=== PATIENT | male | born 1975 | race Caucasian/White ===

== ENCOUNTER 2024-03-06 05:58 | Day surgery (SDC) | payer BC ==
[2024-03-03 16:29] VITALS: BP 145/84
[~2024-03-06] VITALS: Ht 177.8 cm; Wt 56.8 kg
[~2024-03-06 05:58] MED LIST: MIDAZOLAM HCL 5 MG/5 ML VIAL IV PRN; fentaNYL citrate 100 MCG/2 ML VIAL IV PRN
[2024-03-06 06:09] VITALS: BP 123/97
[2024-03-06] MEDS ORDERED: MULTIVITAMIN200 MCG PO (06:12)
[2024-03-06 06:29] VITALS: BP 121/93
[2024-03-06] MEDS ORDERED: LIDOCAINE HCL 1% 5 ML SDV INJ ONE (07:00)
[2024-03-06] MEDS ORDERED: LACTATED RINGER'S 1,000 ML IV SCH (07:00)
[2024-03-06] MEDS ORDERED: IBLOOD GLUCOSE TEST STRIP 1 EA TEST VI PRN (07:00)
[2024-03-06] MEDS ORDERED: propofoL 200 MG/20 ML VIAL ONE (07:11)
[2024-03-06] MEDS ORDERED: LIDOCAINE HCL 2% 5 ML SDV ONE (07:11)
--- NOTE | 2024-03-06 08:11 | NUR ---
03/06/24 0811 Felisa Lomax 0751-PT ARRIVES TO PACU RESTING ON LT SIDE, PT RESPONSIVE TO TACTILE STIMULI, VSS ON 6L VIA MASK, REU. 0800-PT AWAKENS ON OWN, TITRATED TO RA, VSS, REU. PT DENIES PAIN OR NAUSEA, PT ENCOURAGED TO PASS GAS. 0805- AT BEDSIDE TO HANDOFF CHART TO THIS RN. 0810-PT SITTING UP IN BED SIPPING ON JUICE. VSS ON RA, REU. PT DENIES ANY PAIN OR NAUSEA.
[2024-03-06 08:19] VITALS: BP 115/87
--- NOTE | 2024-03-06 08:54 | OR ---
[facility] [address], [place] [address] Signed DATE OF OPERATION: 03/06/2024 SURGEON: Patricia Henry MD PREOPERATIVE DIAGNOSIS: Father with rectal cancer, age 39. POSTOPERATIVE DIAGNOSES: 1. 3 mm polyps x2 at 5 cm in rectum. 2. Minimal internal hemorrhoids. PROCEDURE: Colonoscopy with hot biopsy. ESTIMATED BLOOD LOSS: None. INDICATIONS: Víctor is a -pdpb-vrh gentleman, asked to see me for his initial colonoscopy. He told me his father had a colostomy at age 39 and possibly younger for rectal cancer. He thinks his father may have of rectal cancer at age 67, but he is not entirely sure. He has a brother with irritable bowel syndrome. Víctor has no lower GI complaints. In the office, I gave him a pamphlet on colonoscopy. We had reviewed the nature of the test. There is risk including, but not limited to gas bloating, crampy abdominal pain, bleeding, perforation requiring surgery, and missed diagnosis. We also reviewed the written instructions for the bowel prep line by line. He also understands the need for monitored anesthesia care given his daily need of marijuana and vaping. He has expressed understanding and would like to proceed. He understands that an adult person has to take him home afterwards. He believes that will be his brother. PROCEDURE IN DETAIL: Víctor was taken into our endoscopy suite and placed in the left lateral decubitus position. He was given monitored anesthesia care, propofol infusion per our nurse warrant clerk. A digital rectal exam was performed. This was unremarkable. No external hemorrhoids. Good sphincter tone. No masses. His prostate is quite small and soft. The adult colonoscope had been introduced and advanced under direct visualization of camera. Víctor is quite thin with a body mass index of 19. Therefore it took just a few minutes to pass the scope in and out with some mild abdominal compression to straighten out the colon and get the colonoscope directly into the cecum itself. His prep was quite good. We could easily see the appendiceal orifice and ileocecal valve. Electronically Signed By: PATRICIA HENRY MD 03/06/24 0854 PATIENT NAME: VÍCTOR FOX OPERATIVE REPORT DATE OF : 73 REPORT #: [id number] PHYSICIAN: PATRICIA HENRY MD PCP: DENISE MAC DO REPORT IS CONFIDENTIAL AND NOT TO BE RELEASED WITHOUT AUTHORIZATION [facility] [address] [place], [place] [address] Signed The scope was slowly withdrawn. We took several pictures throughout for photodocumentation. He had no pathology throughout the entire colon. Once in the rectum, he had just two tiny 3 mm polyps about 5 cm above the anal canal. We removed two of those with hot biopsy forceps and then slightly below that we burned a couple of more with the cautery. Upon retroflexion of scope he has minimal internal hemorrhoid tissue and tiny internal anal skin tags. After this, the gas was suctioned out. The colonoscope removed. Víctor tolerated the procedure quite well. RECOMMENDATIONS: I will see Víctor back in my office in 7 to 14 days to review his results. He will be on the five year plan because of his father's history. Patricia Henry MD ALB/MODL /[id number] cc: DO Patricia Curiel MD Copies: DENISE MAC ANDREW L MD ~ Electronically Signed By: PATRICIA HENRY MD 03/06/24 0854 PATIENT NAME: VÍCTOR FOX OPERATIVE REPORT DATE OF : 73 REPORT #: [id number] PHYSICIAN: PATRICIA HENRY MD PCP: DENISE MAC DO REPORT IS CONFIDENTIAL AND NOT TO BE RELEASED WITHOUT AUTHORIZATION
--- NOTE | 2024-03-10 12:32 | PATH ---
[facility] [address] [place], [place] [address] Signed SPECIMEN(S): A RECTAL POLYP SPECIMEN SOURCE: A. RECTAL POLYP CLINICAL HISTORY: History screening colonoscopy/family history of colon cancer. Post: polyp x 1/internal hemorrhoids FINAL PATHOLOGIC DIAGNOSIS: Rectum, polypectomy: - Hyperplastic polyp BRP MICROSCOPIC EXAMINATION: Histologic sections of all submitted blocks are examined by light microscopy. These findings, together with the gross examination, support the pathologic diagnosis. GROSS DESCRIPTION: The specimen, labeled and designated "Ruma Fox, rectal polyp," is received in formalin and consists of two ivy soft tissue fragments, ranging from 0.2-0.3 cm. Entirely submitted in (A1). AB (under the direct supervision of a pathologist) The Gross Description was prepared using a voice recognition system. The report was reviewed for accuracy; however, sound-alike word errors, addition and/or deletions may occur. If there is any question about this report, please contact Client Services. ADDITIONAL NOTES: Immunohistochemical and/or in situ hybridization studies if performed in this case included appropriate positive controls that reacted as expected. This test was developed and its performance characteristics determined by [facility] [place]. It has not been cleared or approved by the U.S. Food and Drug Administration. The FDA has determined that such clearance or approval is not necessary. This test is used for clinical purposes. It should not be regarded as investigational or for research. [facility] [place] is certified under the Clinical Laboratory Improvement Amendments of 1988 (CLIA) as qualified to perform high complexity clinical laboratory testing. PATIENT NAME: VÍCTOR FOX PATHOLOGY DATE OF : 73 REPORT #: [id number] PHYSICIAN: CHANG AMAYA PCP: DENISE MAC DO REPORT IS CONFIDENTIAL AND NOT TO BE RELEASED WITHOUT AUTHORIZATION [facility] [address] [place], [place] [address] Signed PERFORMING LABORATORY: Technical component was performed by [facility] [place], [address] [place] [address] (CLIA# [id number]). Professional interpretation was performed by [facility], [address] [address] (CLIA# [id number]). Diagnostician: Greg Alvarado MD Pathologist Electronically Signed 03/10/2024 Copies: ~ PATIENT NAME: VÍCTOR FOX PATHOLOGY DATE OF : 73 REPORT #: [id number] PHYSICIAN: CHANG AMAYA PCP: DENISE MAC DO REPORT IS CONFIDENTIAL AND NOT TO BE RELEASED WITHOUT AUTHORIZATION
== END 2024-03-06 08:25 | disposition home or self-care (01) ==
LOC: DS 05:58
PROVIDERS: ATTEND Colon & Rectal Surgery
PROC: 0DBP8ZZ Excision of Rectum, Via Natural or Artificial Opening Endoscopic (ICD-10-PCS; principal; 2024-03-06 07:30)
DX: Z12.11 Encounter for screening for malignant neoplasm of colon (principal); K62.1 Rectal polyp; K64.8 Other hemorrhoids; F17.290 Nicotine dependence, other tobacco product, uncomplicated; Z80.0 Family history of malignant neoplasm of digestive organs
CPT/HCPCS: 00811; J2003; J2704; J7121